=== PATIENT | female | born 1960 | race Caucasian/White ===

== ENCOUNTER → 2020-02-03 | Outpatient (CLI) | payer BC ==
--- NOTE | 2020-02-03 16:36 | RAD ---
EXAM: Left shoulder, 4 views. HISTORY: Pain. COMPARISON: None. FINDINGS: 4 views of the left shoulder obtained. There is glenohumeral joint space narrowing with subchondral sclerosis, subchondral cyst formation and marginal spurring. IMPRESSION: Moderate glenohumeral osteoarthritis. Electronically signed by: Susi Turcios MD (02/03/2020 4:33 PM) [email or web address]
== END | disposition home or self-care (01) ==
LOC: DXRAD 15:44
PROVIDERS: ATTEND Orthopaedic Surgery
DX: M19.012 Primary osteoarthritis, left shoulder (principal); M77.9 Enthesopathy, unspecified
CPT/HCPCS: 73030

== ENCOUNTER → 2020-05-13 | Outpatient (CLI) | payer BC ==
--- NOTE | 2020-05-13 17:25 | RAD ---
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 Overlying skin shu are seen. Electronically signed by: Donnie Lara MD (05/13/2020 5:23 PM) [id number]
== END ==
LOC: DXRAD 16:02
PROVIDERS: ATTEND Orthopaedic Surgery
DX: Z47.1 Aftercare following joint replacement surgery (principal); Z96.612 Presence of left artificial shoulder joint
CPT/HCPCS: 73030

== ENCOUNTER → 2020-06-17 | Outpatient (CLI) | payer BC ==
--- NOTE | 2020-06-17 16:41 | RAD ---
EXAM: Left shoulder, 2 views. HISTORY: Pain. COMPARISON: 05/13/2020 FINDINGS: 2 views left shoulder obtained. There is a reverse shoulder arthroplasty in expected positi on. There is no evidence of interpretation loosening or periprosthetic fracture. IMPRESSION: Left shoulder arthroplasty in expected position. Electronically signed by: Susi Turcios MD (06/17/2020 4:39 PM) [email or web address]
== END ==
LOC: DXRAD 14:47
PROVIDERS: ATTEND Orthopaedic Surgery
DX: M25.512 Pain in left shoulder (principal); Z96.612 Presence of left artificial shoulder joint
CPT/HCPCS: 73030

== ENCOUNTER → 2020-07-29 | Outpatient (CLI) | payer BC ==
--- NOTE | 2020-07-29 16:15 | RAD ---
EXAM: Left shoulder, 4 views. HISTORY: Arthroplasty. COMPARISON: 06/17/2020 FINDINGS: 4 views of the left shoulder obtained. There is a reverse left shoulder arthroplasty in exp ected position. There is no evidence of arthroplasty loosening. IMPRESSION: Left shoulder arthroplasty in expected position. Electronically signed by: Susi Turcios MD (07/29/2020 4:12 PM) [id number]
== END ==
LOC: RAD 15:36
PROVIDERS: ATTEND Orthopaedic Surgery
DX: Z47.1 Aftercare following joint replacement surgery (principal); Z96.612 Presence of left artificial shoulder joint
CPT/HCPCS: 73030

== ENCOUNTER → 2021-04-29 | Outpatient (CLI) | payer BC ==
--- NOTE | 2021-04-29 16:22 | RAD ---
EXAM: 3 Views Left Shoulder DATE: 04/29/2021 3:55 PM INDICATION: Reason: 1 YEAR FOLLOW UP AFTER SURGERY / Spl. 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 There is a glenoid erosion or distal clavicle fracture is identified. Mild AC joint DJD. Electronically signed by: Donnie Lara MD (04/29/2021 4:20 PM) [email or web address]
== END ==
LOC: RAD 15:51
PROVIDERS: ATTEND Orthopaedic Surgery
DX: S42.032A Displaced fracture of lateral end of left clavicle, initial encounter for closed fracture (principal); M19.012 Primary osteoarthritis, left shoulder; X58.XXXA Exposure to other specified factors, initial encounter; Y93.89 Activity, other specified; Y92.89 Other specified places as the place of occurrence of the external cause; Y99.8 Other external cause status
CPT/HCPCS: 73030